=== PATIENT | male | born 1955 | race Caucasian/White ===

== ENCOUNTER → 2020-09-09 | Day surgery (SDC) | payer OTHER ==
[2020-09-05 11:30] LABS: BASOPHILS # (AUTO) 0.1 (0.0-0.1); BASOPHILS % 0.7 % (0.0-1.0); EOSINOPHILS # (AUTO) 0.2 (0.0-0.4); EOSINOPHILS % 2.6 % (0.0-6.0); HEMOGLOBIN 16.8 g/dL (14.0-18.0); LYMPHOCYTES # (AUTO) 2.8 (1.0-3.2); LYMPHOCYTES % 40.7 % (18.0-39.1); MEAN CORPUSCULAR HEMOGLOBIN 30.6 pg (28-32); MEAN CORPUSCULAR HGB CONC 33.6 g/dL (31-35); MEAN CORPUSCULAR VOLUME 91.1 fL (81-99); MONOCYTES # (AUTO) 1.1 (0.2-0.8); MONOCYTES % 15.6 % (4.4-11.3); NEUTROPHILS # (AUTO) 2.8 (2.1-6.9); NEUTROPHILS % 40.1 % (38.7-80.0); PLATELET COUNT 254 x10e3/uL (140-360); RED BLOOD COUNT 5.49 x10e6/uL (4.3-5.7); RED CELL DISTRIBUTION WIDTH 12.4 % (11.7-14.4)
[~2020-09-09] MED LIST: ASPIRIN81 MG PO; ATORVASTATIN CA20 MG PO; EPHEDRINE SULFATE INJ 50 MG/ML VIAL ONE; FENOFIBRATE160 MG PO; FENTANYL CITRATE/PF 100MCG/2 ML INJ ONE; HYDROCHLOROTHIA25 MG PO; INSPRA50 MG PO; LIALDA1.2 GM PO; LISINOPRIL10 MG PO; METOPROLOL SUCC50 MG PO; METOPROLOL TART50 MG PO; MIDAZOLAM HCL 2 MG/2 ML VIAL ONE; PROPOFOL IV EMULSION 10 MG/ML 20 ML VIAL ONE; SIMVASTATIN20 MG PO; TRICOR145 MG PO; UCERIS TP
[2020-09-09 10:50] VITALS: BP 124/69
== END | disposition home or self-care (01) ==
LOC: OR 06:40 → MERGE 06:40
PROVIDERS: ATTEND Internal Medicine Gastroenterology
DX: K51.90 Ulcerative colitis, unspecified, without complications (principal); D12.0 Benign neoplasm of cecum; K64.8 Other hemorrhoids; I25.119 Atherosclerotic heart disease of native coronary artery with unspecified angina pectoris; I10 Essential (primary) hypertension; E78.5 Hyperlipidemia, unspecified; I25.5 Ischemic cardiomyopathy; Z01.810 Encounter for preprocedural cardiovascular examination; Z01.812 Encounter for preprocedural laboratory examination; Z20.822 Contact with and (suspected) exposure to COVID-19; Z79.82 Long term (current) use of aspirin; Z79.02 Long term (current) use of antithrombotics/antiplatelets; Z95.1 Presence of aortocoronary bypass graft; Z95.5 Presence of coronary angioplasty implant and graft; Z85.819 Personal history of malignant neoplasm of unspecified site of lip, oral cavity, and pharynx; Z87.891 Personal history of nicotine dependence
CPT/HCPCS: 36415; 45380; 45385; 85025; 93005; J2250; J2704; J3010; U0002; 45378; 45384

== ENCOUNTER 2022-10-12 07:20 | Inpatient (IN) | payer MEDICARE, OTHER ==
[~2022-10-12] VITALS: Ht 172.7 cm; Wt 81.6 kg
[~2022-10-12 07:20] MED LIST changes: -EPHEDRINE SULFATE INJ 50 MG/ML VIAL ONE; -FENTANYL CITRATE/PF 100MCG/2 ML INJ ONE; -MIDAZOLAM HCL 2 MG/2 ML VIAL ONE; -PROPOFOL IV EMULSION 10 MG/ML 20 ML VIAL ONE
[2022-10-12 07:54] LABS: BASOPHILS # (AUTO) 0.1 (0.0-0.1); BASOPHILS % 0.8 % (0.0-1.0); EOSINOPHILS # (AUTO) 0.2 (0.0-0.4); HEMATOCRIT 46.2 % (38.2-49.6); HEMOGLOBIN 15.2 g/dL (14.0-18.0); LYMPHOCYTES # (AUTO) 2.3 (1.0-3.2); LYMPHOCYTES % 31.4 % (18.0-39.1); MEAN CORPUSCULAR HEMOGLOBIN 30.5 pg (28-32); MEAN CORPUSCULAR HGB CONC 32.9 g/dL (31-35); MEAN CORPUSCULAR VOLUME 92.6 fL (81-99); MONOCYTES # (AUTO) 1.1 (0.2-0.8); NEUTROPHILS # (AUTO) 3.7 (2.1-6.9); NEUTROPHILS % 50.5 % (38.7-80.0); PLATELET COUNT 230 x10e3/uL (140-360); RED BLOOD COUNT 4.99 x10e6/uL (4.3-5.7); RED CELL DISTRIBUTION WIDTH 12.9 % (11.7-14.4)
[2022-10-12 08:13] LABS: ALBUMIN 3.8 g/dL (3.5-5.0); ANION GAP 12.3 mmol/L (8-16); CALCIUM 9.4 mg/dL (8.4-10.2); CREATININE, SERUM 1.07 mg/dL (0.72-1.25); POTASSIUM 4.3 mmol/L (3.5-5.1)
[2022-10-12 08:25] LABS: COLOR,URINE RED (YELLOW)
[2022-10-12 08:26] LABS: BACTERIA,URINE FEW /HPF; CLARITY,URINE TURBID (CLEAR); EPITHELIAL CELLS,URINE FEW /LPF; KETONES,URINE 2+ (NEGATIVE); LEUKOCYTE ESTERASE ,URINE LARGE (NEGATIVE); NITRITE,URINE NEGATIVE (NEGATIVE); PROTEIN,URINE DIPSTICK >=300 (NEGATIVE); RBC,URINE >50 /HPF (0-5); URINE UROBILINOGEN >=8 mg/dL (0.2 - 1); WBC,URINE (MAN) >50 /HPF (0-5)
[2022-10-12] MEDS ORDERED: IOPAMIDOL 370 MG/ML 100 ML INFUS..BTL INJ ONE ×2 (08:40→08:41)
[2022-10-12] MEDS ORDERED: SODIUM CHLORIDE 0.9% 250ML 250 ML ONE (08:42)
[2022-10-12] MEDS ORDERED: METOPROLOL TAR100 MG PO (11:30)
[2022-10-12] MEDS ORDERED: CLOPIDOGREL75 MG PO (11:30)
[2022-10-12] MEDS ORDERED: ROSUVASTATIN CA40 MG PO (11:30)
[2022-10-12] MEDS ORDERED: SEVOFLURANE INHAL SOLN 250 ML PEN BTL ONE (12:05)
[2022-10-12] MEDS ORDERED: PROPOFOL IV EMULSION 10 MG/ML 20 ML VIAL ONE (12:05)
[2022-10-12] MEDS ORDERED: KETOROLAC TROMETHAMINE 30 MG/ML VIAL ONE (12:05)
[2022-10-12] MEDS ORDERED: POVIDONE IODINE 0.05% 0.05 % ML PO ONE (12:05)
[2022-10-12] MEDS ORDERED: ONDANSETRON HCL INJ 2MG/ML 2ML 2 MG/ML VIAL ONE (12:05)
[2022-10-12] MEDS ORDERED: DEXAMETHASONE SOD PHOS INJ 4 MG/ML SDV ONE (12:05)
[2022-10-12] MEDS ORDERED: ROCURONIUM BROMIDE 10 MG/ML 5ML VIAL IV ONE (12:05)
[2022-10-12] MEDS ORDERED: LIDOCAINE HCL 2% LOCAL INJ 5 ML SDV VIAL INJ ONE (12:05)
[2022-10-12] MEDS ORDERED: SUCCINYLCHOLINE CHLORIDE 20 MG/ML 10ML VIAL ONE (12:05)
[2022-10-12] MEDS ORDERED: METOPROLOL TARTRATE INJ 1 MG/ML VIAL ONE (12:05)
[2022-10-12 14:32] VITALS: PULSE 86; RESP 18; O2SAT 99
[2022-10-12] MEDS: SODIUM CHLORIDE 0.9% 1000ML 1,000 ML IV SCH ×2 (16:49→22:55)
[2022-10-12 18:15] VITALS: PULSE 74; RESP 18; O2SAT 98
[2022-10-12 19:30] VITALS: BP 137/73; PULSE 66; RESP 17; TEMP 98; O2SAT 99
[2022-10-12 20:30] VITALS: BP 137/73; PULSE 66; RESP 17; TEMP 98; O2SAT 99
[2022-10-13] VITALS (9 sets, daily range): BP systolic 129–151; BP diastolic 66–77; PULSE 64–88; RESP 16–20; TEMP 97.7–98.3; O2SAT 98–100
[2022-10-13] MEDS: SODIUM CHLORIDE 0.9% 1000ML 1,000 ML IV SCH ×2 (03:35→14:50)
[2022-10-13 05:13] LABS: BASOPHILS # (AUTO) 0.1 (0.0-0.1); EOSINOPHILS # (AUTO) 0.2 (0.0-0.4); EOSINOPHILS % 3.6 % (0.0-6.0); HEMATOCRIT 38.4 % (38.2-49.6); HEMOGLOBIN 12.9 g/dL (14.0-18.0); LYMPHOCYTES # (AUTO) 1.9 (1.0-3.2); LYMPHOCYTES % 37.3 % (18.0-39.1); MEAN CORPUSCULAR HGB CONC 33.6 g/dL (31-35); MEAN CORPUSCULAR VOLUME 92.3 fL (81-99); MONOCYTES # (AUTO) 0.8 (0.2-0.8); MONOCYTES % 16.4 % (4.4-11.3); NEUTROPHILS # (AUTO) 2.1 (2.1-6.9); NEUTROPHILS % 41.5 % (38.7-80.0); PLATELET COUNT 194 x10e3/uL (140-360); RED BLOOD COUNT 4.16 x10e6/uL (4.3-5.7)
[2022-10-13 05:29] LABS: ANION GAP 11.1 mmol/L (8-16); CALCIUM 8.8 mg/dL (8.4-10.2); CREATININE, SERUM 0.89 mg/dL (0.72-1.25); POTASSIUM 4.1 mmol/L (3.5-5.1)
[2022-10-13] MEDS: LISINOPRIL 20 MG TAB PO SCH (09:00)
[2022-10-13] MEDS: ATORVASTATIN 40 MG TAB PO SCH (09:00)
[2022-10-13] MEDS ORDERED: ASPIRIN 81 MG CHEW TAB PO SCH (09:00)
[2022-10-13] MEDS: EPLERONONE 25 MG PO SCH (09:00)
[2022-10-13] MEDS: METOPROLOL TARTRATE 50 MG TAB PO SCH (09:00)
[2022-10-13] MEDS ORDERED: CLOPIDOGREL BISULFATE 75 MG TAB PO SCH (09:00)
[2022-10-14] VITALS (8 sets, daily range): BP systolic 135–163; BP diastolic 72–95; PULSE 69–84; RESP 17–18; TEMP 97.5–98; O2SAT 97–99
[2022-10-14] MEDS: SODIUM CHLORIDE 0.9% 1000ML 1,000 ML IV SCH ×4 (01:50→20:53)
[2022-10-14] MEDS: EPLERONONE 25 MG PO SCH (08:33)
[2022-10-14] MEDS: ATORVASTATIN 40 MG TAB PO SCH (08:33)
[2022-10-14] MEDS: METOPROLOL TARTRATE 50 MG TAB PO SCH (08:33)
[2022-10-14] MEDS: LISINOPRIL 20 MG TAB PO SCH (08:34)
[2022-10-14] MEDS ORDERED: FENTANYL CITRATE/PF 100MCG/2 ML INJ ONE (11:47)
[2022-10-14] MEDS ORDERED: ACETAMINOPHEN 1000 MG/100 ML 100 ML IV ONE (13:56)
[2022-10-14] MEDS ORDERED: SUGAMMADEX SODIUM 200 MG/2 ML VIAL IV ONE ×2 (13:56→16:38)
[2022-10-14] MEDS ORDERED: IOPAMIDOL 610MG/1ML 300 MG/ML VIAL IV ONE (15:49)
[2022-10-14] MEDS ORDERED: POLYETHYLENE GLYCOL 3350 17 GM PACK PO PRN (20:30)
[2022-10-14] MEDS ORDERED: ONDANSETRON HCL INJ 2MG/ML 2ML 2 MG/ML VIAL IV PRN (20:30)
[2022-10-14] MEDS ORDERED: TEMAZEPAM 15 MG CAP PO PRN (20:30)
[2022-10-14] MEDS ORDERED: HYDRALAZINE HCL 20 MG/ML VIAL IV PRN (20:30)
[2022-10-14] MEDS ORDERED: ACETAMINOPHEN 325 MG TAB PO PRN (20:30)
[2022-10-15 00:22] VITALS: BP 134/68; PULSE 75; RESP 18; TEMP 98
[2022-10-15] MEDS: SODIUM CHLORIDE 0.9% 1000ML 1,000 ML IV SCH ×2 (03:13→14:15)
[2022-10-15 04:00] VITALS: BP 130/66; PULSE 76; RESP 19; TEMP 98.6; O2SAT 99
[2022-10-15 05:01] LABS: BASOPHILS % 0.1 % (0.0-1.0); HEMATOCRIT 34.6 % (38.2-49.6); HEMOGLOBIN 11.7 g/dL (14.0-18.0); LYMPHOCYTES # (AUTO) 1.2 (1.0-3.2); MEAN CORPUSCULAR HEMOGLOBIN 30.8 pg (28-32); MEAN CORPUSCULAR HGB CONC 33.8 g/dL (31-35); MEAN CORPUSCULAR VOLUME 91.1 fL (81-99); MONOCYTES # (AUTO) 0.5 (0.2-0.8); MONOCYTES % 7.5 % (4.4-11.3); NEUTROPHILS # (AUTO) 5.3 (2.1-6.9); NEUTROPHILS % 75.3 % (38.7-80.0); PLATELET COUNT 196 x10e3/uL (140-360); RED CELL DISTRIBUTION WIDTH 12.4 % (11.7-14.4)
[2022-10-15 05:26] LABS: ANION GAP 14.2 mmol/L (8-16); CREATININE, SERUM 0.8 mg/dL (0.72-1.25); MAGNESIUM 1.6 MG/DL (1.3-2.1); POTASSIUM 4.2 mmol/L (3.5-5.1)
[2022-10-15] MEDS ORDERED: FAMOTIDINE 20 MG TAB PO SCH (07:30)
[2022-10-15 08:21] VITALS: BP 129/63; PULSE 94; RESP 17; TEMP 97.9; O2SAT 100
[2022-10-15] MEDS: LISINOPRIL 20 MG TAB PO SCH (08:37)
[2022-10-15] MEDS: EPLERONONE 25 MG PO SCH (08:38)
[2022-10-15] MEDS: METOPROLOL TARTRATE 50 MG TAB PO SCH (08:38)
[2022-10-15] MEDS: ATORVASTATIN 40 MG TAB PO SCH (08:39)
[2022-10-15] MEDS ORDERED: DOCUSATE SODIUM 100 MG CAP PO SCH (09:00)
[2022-10-15 09:28] VITALS: BP 129/63; PULSE 94; RESP 17; TEMP 97.9; O2SAT 100
[2022-10-15 13:13] VITALS: BP 134/83; PULSE 69; RESP 16; TEMP 97.6; O2SAT 98
== END 2022-10-15 16:25 | disposition home or self-care (01) | DRG 669 ==
LOC: ER 07:22 → ERHOLD 14:16 → INTOOBSV 14:16 → MED/SURG2 19:32 → MED/SURG 19:37 → OBSVTOIN 10-14 15:05
PROVIDERS: ADMIT Internal Medicine; ATTEND Internal Medicine
PROC: 0TBB8ZZ Excision of Bladder, Via Natural or Artificial Opening Endoscopic (ICD-10-PCS; principal; 2022-10-14 15:50)
PROC: 0TCB8ZZ Extirpation of Matter from Bladder, Via Natural or Artificial Opening Endoscopic (ICD-10-PCS; 2022-10-14 15:50)
DX: C67.9 Malignant neoplasm of bladder, unspecified (principal); C78.01 Secondary malignant neoplasm of right lung; R31.9 Hematuria, unspecified; I11.9 Hypertensive heart disease without heart failure; E78.00 Pure hypercholesterolemia, unspecified; R33.9 Retention of urine, unspecified; I25.10 Atherosclerotic heart disease of native coronary artery without angina pectoris; Z20.822 Contact with and (suspected) exposure to COVID-19; Z79.82 Long term (current) use of aspirin; Z79.02 Long term (current) use of antithrombotics/antiplatelets; Z85.89 Personal history of malignant neoplasm of other organs and systems
CPT/HCPCS: 0223U; 36415; 74178; 80048; 80053; 81001; 83735; 84100; 85025; 87086; 88304; 88307; 94799; 99284; G0378; J0330; J0690; J1100; J1885; J2001; J2405; J7030; J7050; Q9967